=== PATIENT | female | born 1965 | race Caucasian/White ===

== ENCOUNTER → 2016-12-24 | Outpatient (CLI) | payer OTHER ==
[~2016-12-24] MED LIST: BUPR150T7 PO; CITA20TA4 PO; CLON0.5T3 PO
== END | disposition home or self-care (01) ==
LOC: C.LAB 04:19
DX: Z02.83 Encounter for blood-alcohol and blood-drug test (principal)

== ENCOUNTER 2017-05-26 15:39 | Emergency (ER) | payer OTHER ==
[~2017-05-26] VITALS: Ht 162.6 cm; Wt 78.0 kg
[~2017-05-26 15:39] MED LIST changes: +BIOT1CAP8 PO; +CHOL1000 PO; +IBUP-1450 PO; +MELO7.5T5 PO; +MULT-506 PO; +VITACAP26 PO
[2017-05-26 15:46] VITALS: TEMP 36.8; Ht 162.6 cm; Wt 78.0 kg
[2017-05-26] MEDS ORDERED: SODIUM CHLORIDE 0.9% 500ML 500 ML IV STA (18:29)
[2017-05-26] MEDS ORDERED: KETOROLAC TROMETHAMINE 30 MG/ML VIAL IV STA (18:29)
[2017-05-26] MEDS ORDERED: HYDROmorphone INJ 1 MG/ML SYR IV PRN (18:30)
[2017-05-26] MEDS ORDERED: ONDANSETRON INJ 2 MG/ML 2 ML VIAL IV PRN (18:30)
--- NOTE | 2017-05-26 18:34 | EMERGENCY ROOM VISIT NOTE ---
History First contact with patient: 18:12 Chief Complaint: REFERRED BY DOCTOR Stated Complaint: KIDNEY STONE;DOC REFERRED History of Present Illness The patient is a 52 year old female who presents to the Emergency Room with complaints of right flank pain radiating into her right abdomen that has gotten progressively worse over the last 3 weeks. The patient saw her primary care physician. An ultrasound and an x-ray were performed. She was told that she had a 4 mm kidney stone. The patient became concerned last night because she started seeing blood in her urine. She also reports hot and cold spells. The patient does not take her temperature at home. She denies any dysuria. She has had nausea without vomiting. Review of Systems 10 system review performed and negative unless noted in HPI or below Past Medical/Surgical History Medical Problems: (1) Acc Poison-Plants Nec (2) Oth Malaise&Fatigue (3) Tubal Ligation Status Social History Smoking Status: Current Every Day Smoker Alcohol Use: occasionally Drug Use: other Marital Status: single Housing Status: lives with family Occupation Status: employed Current/Historical Medications Scheduled Aripiprazole (Abilify), 1 TAB PO DAILY Biotin (Biotin), 1 CAP PO DAILY Bupropion (Wellbutrin Sr), 200 MG PO DAILY Calcium Carbonate-Vitamin D (Calcium), 1 TAB PO DAILY Cholecalciferol (Vitamin D3), 1 TAB PO DAILY Citalopram Hydrobromide (Citalopram Hydrobromide), 5 MG PO DAILY Multivitamin (Multivitamin), 1 TAB PO Q2D Ondasetron Odt (Zofran Odt), 4 MG SL Q6H Tamsulosin Hcl (Flomax), 0.4 MG PO DAILY Scheduled PRN Black Cohosh (Cimicifuga Racem (Black Cohosh), 1 TAB PO BID PRN for MENAPAUSE Ibuprofen (Advil), 400-600 MG PO Q6H PRN for Headache or Pain Tramadol (Ultram), 50 MG PO Q6 PRN for Pain Physical Exam Vital Signs Date Time Temp Pulse Resp B/P (MAP) Pulse Ox O2 Delivery O2 Flow Rate FiO2 05/26/17 20:53 68 16 167/86 98 Room Air 05/26/17 19:28 75 14 155/78 98 Room Air 05/26/17 15:46 36.8 98 18 145/93 96 Physical Exam VITALS: Vitals are noted on the nurse's note and reviewed by myself. Vital signs stable. GENERAL: 52-year-old female, in no acute distress, nondiaphoretic, well- developed well-nourished. SKIN: The skin was without rashes, erythema, edema, or bruising. HEAD: Normocephalic atraumatic. MOUTH: Mucous membranes moist. NECK: Supple without nuchal rigidity Cervical spine is nontender. No JVD. HEART: Regular rate and rhythm without murmurs gallops or rubs. LUNGS: Clear to auscultation bilaterally without wheezes, rales or rhonchi. No accessory muscle use. ABDOMEN: Positive bowel sounds x 4.Soft, nontender, without organomegaly. No guarding or rebound tenderness. MUSCULOSKELETAL: No muscle atrophy, erythema, or edema noted. Strength 5/5 throughout. NEURO: Patient was alert and oriented to person place and time. Normal sensation to touch. No focal neurological deficits. Medical Decision & Procedures ER Provider Diagnostic Interpretation: CT abdomen and pelvis IMPRESSION: 1. 5 mm obstructing calculus within the right ureter at the level of the right mid sacrum. 2. Moderate right hydroureteronephrosis. 3. Several nonobstructing lower pole left renal calcifications. The above report was generated using voice recognition software. It may contain grammatical, syntax or spelling errors. Electronically signed by: Stephan Israel M.D. 05/26/2017 7:40 PM Dictated Date/Time: 05/26/2017 7:36 PM Laboratory Results 05/26/17 18:41 Red Blood Count 4.71, Mean Corpuscular Volume 91.3, Mean Corpuscular Hemoglobin 30.8, Mean Corpuscular Hemoglobin Concent 33.7, Mean Platelet Volume 8.8, Neutrophils (%) (Auto) 47.5, Lymphocytes (%) (Auto) 40.8, Monocytes (%) (Auto) 8.7, Eosinophils (%) (Auto) 2.3, Basophils (%) (Auto) 0.5, Neutrophils # (Auto) 2.91, Lymphocytes # (Auto) 2.50, Monocytes # (Auto) 0.53, Eosinophils # (Auto) 0.14, Basophils # (Auto) 0.03 05/26/17 18:41 Test 2/9/18 18:41 White Blood Count 6.12 K/uL (4.8-10.8) Red Blood Count 4.71 M/uL (4.2-5.4) Hemoglobin 14.5 g/dL (12.0-16.0) Hematocrit 43.0 % (37-47) Mean Corpuscular Volume 91.3 fL (80-100) Mean Corpuscular Hemoglobin 30.8 pg (25-34) Mean Corpuscular Hemoglobin Concent 33.7 g/dl (32-36) Platelet Count 230 K/uL (130-400) Mean Platelet Volume 8.8 fL (7.4-10.4) Neutrophils (%) (Auto) 47.5 % Lymphocytes (%) (Auto) 40.8 % Monocytes (%) (Auto) 8.7 % Eosinophils (%) (Auto) 2.3 % Basophils (%) (Auto) 0.5 % Neutrophils # (Auto) 2.91 K/uL (1.4-6.5) Lymphocytes # (Auto) 2.50 K/uL (1.2-3.4) Monocytes # (Auto) 0.53 K/uL (0.11-0.59) Eosinophils # (Auto) 0.14 K/uL (0-0.5) Basophils # (Auto) 0.03 K/uL (0-0.2) RDW Standard Deviation 43.5 fL (36.4-46.3) RDW Coefficient of Variation 13.0 % (11.5-14.5) Immature Granulocyte % (Auto) 0.2 % Immature Granulocyte # (Auto) 0.01 K/uL (0.00-0.02) Urine Color DK YELLOW Urine Appearance CLOUDY (CLEAR) Urine pH 5.0 (4.5-7.5) Urine Specific Rebuck 1.027 (1.000-1.030) Urine Protein 1+ (NEG) Urine Glucose (UA) NEG (NEG) Urine Ketones TRACE (NEG) Urine Occult Blood 3+ (NEG) Urine Nitrite NEG (NEG) Urine Bilirubin NEG (NEG) Urine Urobilinogen NEG (NEG) Urine Leukocyte Esterase SMALL (NEG) Urine WBC (Auto) 1-5 /hpf (0-5) Urine RBC (Auto) >30 /hpf (0-4) Urine Hyaline Casts (Auto) 1-5 /lpf (0-5) Urine Epithelial Cells (Auto) >30 /lpf (0-5) Urine Bacteria (Auto) NEG (NEG) Anion Gap 6.0 mmol/L (3-11) Est Creatinine Clear Calc Drug Dose 65.1 ml/min Estimated GFR () 73.6 Estimated GFR (Non- 63.5 BUN/Creatinine Ratio 18.4 (10-20) Calcium Level 9.5 mg/dl (8.5-10.1) Total Bilirubin 0.2 mg/dl (0.2-1) Aspartate Amino Transf (AST/SGOT) 22 U/L (15-37) Alanine Aminotransferase (ALT/SGPT) 30 U/L (12-78) Alkaline Phosphatase 96 U/L (45-117) Total Protein 7.8 gm/dl (6.4-8.2) Albumin 4.0 gm/dl (3.4-5.0) Globulin 3.8 gm/dl (2.5-4.0) Albumin/Globulin Ratio 1.1 (0.9-2) Medications Administered Medications (Trade) Dose Ordered Sig/Keke Route Start Time Stop Time Status Last Admin Dose Admin Sodium Chloride 500 ml @ 999 mls/hr Q31M STAT IV 05/26/17 18:29 05/26/17 18:59 DC 05/26/17 18:44 999 MLS/HR Hydromorphone HCl (Dilaudid Inj) 1 mg Q2H PRN IV 05/26/17 18:30 05/26/17 21:23 DC 05/26/17 18:45 1 MG Ondansetron HCl (Zofran Inj) 4 mg Q2H PRN IV 05/26/17 18:30 05/26/17 21:23 DC 05/26/17 18:44 4 MG Ketorolac Tromethamine (Toradol Inj) 30 mg NOW STAT IV 05/26/17 18:29 05/26/17 18:32 DC 05/26/17 18:45 30 MG ED Course Patient was seen and examined Vital signs including blood pressure were reviewed medications list was verified with patient Labs were obtained, and a saline lock was established The patient was medicated with Toradol, Dilaudid and Zofran. She was hydrated with 500 mL normal saline Upon reevaluation, the patient was much more comfortable. We reviewed her workup. She voiced understanding and was controlled we'll being discharged home. I reviewed discharge instructions the patient. They voiced understanding and had no further questions. Medical Decision Differential diagnosis: Ureteral stone, pyelonephritis, UTI, musculoskeletal pain, ovarian cyst This patient is a 52-year-old female that presents to the emergency department with complaints of right flank pain and hematuria. On exam, she was moderately uncomfortable. She had some CVA tenderness. Her labs reveal no leukocytosis. Renal function is intact. She does have a 5 mm obstructing ureteral stone which is causing moderate hydronephrosis. Her urinalysis does not show any signs of a UTI. She is afebrile. I believe she is stable to be discharged home. The patient was given a refill on her Flomax. She has plenty of pain medication at home. She was given the number of [facility]. She will call first thing on Monday morning. She agrees to return to the emergency department immediately with any worsening symptoms; especially, fever or worsening pain This chart was completed in part utilizing [employer] Speech Voice Recognition software. Attempts were made to minimize the grammatical errors, random word insertions, pronoun errors and incomplete sentences. Any formal questions or concerns about the content, text or information contained within the body of this dictation should be directly addressed to the provider for clarification. Medication Reconcilliation Current Medication List: was personally reviewed by me Blood Pressure Screening Patient's blood pressure: Elevated blood pressure Blood pressure disposition: Did not require urgent referral Impression Primary Impression: Ureteral stone Departure Information Dispostion Home / Self-Care Condition GOOD Prescriptions Ondasetron Odt (ZOFRAN ODT) 4 Mg Tab 4 MG SL Q6H for Nausea, #20 TAB Prov: Lynn Godfrey PA-C 05/26/17 Tamsulosin Hcl (FLOMAX) 0.4 Mg Cap 0.4 MG PO DAILY for 14 Days, #14 CAP Prov: Lynn Godfrey PA-C 05/26/17 Referrals Mulu Matthews D.O. (PCP) Bridget Velasco MD Patient Instructions My [facility] Additional Instructions You were evaluated in the emergency department for right-sided abdominal pain. You have a 5 mm kidney stone on the right side. Please take ibuprofen 600 mg every 6 hours as needed for pain Oxycodone Immediate Release (OxyIR) 5mg: Take 1-2 pills every four hours for pain. Avoid alcohol, operating machinery or dangerous equipment, working on ladders or roofs, DRIVING, or situations where being under the influence may be dangerous. It is recommended to use an [id number] stool softener such as Colace, 100mg twice daily while taking this medication to avoid constipation. Please take Flomax 1 tab daily Please take Zofran 1 tab under the tongue every 6 hours as needed for nausea Please stay well hydrated. I would recommend drinking plenty of water and sports drinks. Please call the urologist office first thing Monday for a follow-up appointment. Do not hesitate to return to the emergency department with any new, worsening or concerning symptoms; especially, fever, worsening pain or uncontrolled vomiting Work Instructions Return To Work: 2 days
[2017-05-26 18:54] LABS: BASO % 0.5 %; BASO ABS # 0.03 K/uL (0-0.2); EOS % 2.3 %; EOS ABS # 0.14 K/uL (0-0.5); HEMOGLOBIN 14.5 g/dL (12.0-16.0); IG# 0.01 K/uL (0.00-0.02); LYMPH % 40.8 %; MEAN CELL VOLUME 91.3 fL (80-100); MEAN CORPUSCULAR HEMOGLOBIN 30.8 pg (25-34); MEAN CORPUSCULAR HGB CONC 33.7 g/dl (32-36); MEAN PLATELET VOLUME 8.8 fL (7.4-10.4); MONO % 8.7 %; MONO ABS # 0.53 K/uL (0.11-0.59); NEUT % 47.5 %; NEUT ABS # 2.91 K/uL (1.4-6.5); PLATELET COUNT 230 K/uL (130-400); RED CELL DISTRIBUTION WIDTH SD 43.5 fL (36.4-46.3); WHITE BLOOD COUNT 6.12 K/uL (4.8-10.8)
[2017-05-26 19:13] LABS: CALCIUM 9.5 mg/dl (8.5-10.1); CREATININE 1.01 mg/dl (0.60-1.20); POTASSIUM 3.7 mmol/L (3.5-5.1)
[2017-05-26 19:16] LABS: TOTAL PROTEIN 7.8 gm/dl (6.4-8.2)
--- NOTE | 2017-05-26 19:41 | DIAGNOSTIC IMAGING REPORT ---
ABD/PELVIS WITHOUT FOR STONE CT DOSE: 870.90 mGy.cm HISTORY: Flank pain R flank pain ? stone TECHNIQUE: Multiaxial CT images of the abdomen and pelvis were performed without the use of intravenous and oral contrast according to the standard department stone protocol. A dose lowering technique was utilized adhering to the principles of ALARA. COMPARISON STUDY: None. FINDINGS: Lung bases are clear. Liver spleen and pancreas are unremarkable. There is a nonobstructing 3 and 2 mm calcification lower pole left kidney. No evidence for left renal hydronephrosis. Right kidney shows moderate hydronephrosis. Moderate right hydroureter with a trace amount of periureteral infiltrative change. 5 mm obstructing calculus at the level of the mid sacrum. Distal aspects of the ureters are unremarkable. The bladder is midline. Uterus is anteflexed. Bowel pattern is nonobstructive. The appendix is normal. IMPRESSION: 1. 5 mm obstructing calculus within the right ureter at the level of the right mid sacrum. 2. Moderate right hydroureteronephrosis. 3. Several nonobstructing lower pole left renal calcifications. The above report was generated using voice recognition software. It may contain grammatical, syntax or spelling errors. Electronically signed by: Stephan Israel M.D. 05/26/2017 7:40 PM Dictated Date/Time: 05/26/2017 7:36 PM
[2017-05-26] MEDS ORDERED: CALC-51 PO (19:53)
[2017-05-26] MEDS ORDERED: CITA10TA4 PO (19:53)
[2017-05-26] MEDS ORDERED: TRAM-10 PO (19:53)
[2017-05-26] MEDS ORDERED: BLAC1TAB PO (19:53)
[2017-05-26] MEDS ORDERED: IBUP-1050 PO (19:53)
[2017-05-26] MEDS ORDERED: BUPR200T2 PO (19:53)
[2017-05-26] MEDS ORDERED: ABL10 PO (19:53)
[2017-05-26 20:53] VITALS: BP 167/86; PULSE 68; O2SAT 98
[2017-05-26] MEDS ORDERED: TAMS0.4C38 PO (20:57)
[2017-05-26] MEDS ORDERED: ONDA4TAB10 SL (20:57)
== END 2017-05-26 21:00 | disposition home or self-care (01) ==
LOC: C.EDB 15:41 → C.EDA 21:00
DX: N20.1 Calculus of ureter (principal); R03.0 Elevated blood-pressure reading, without diagnosis of hypertension; F17.200 Nicotine dependence, unspecified, uncomplicated

== ENCOUNTER → 2017-08-29 | Outpatient (CLI) | payer OTHER ==
[~2017-08-29] MED LIST changes: +ABL10 PO; +BLAC1TAB PO; -BUPR150T7 PO; +BUPR200T2 PO; +CALC-51 PO; +CITA10TA4 PO; -CITA20TA4 PO; -CLON0.5T3 PO; +IBUP-1050 PO; -IBUP-1450 PO; -MELO7.5T5 PO; +ONDA4TAB10 SL; +TRAM-10 PO; -VITACAP26 PO
--- NOTE | 2017-08-29 09:44 | DIAGNOSTIC IMAGING REPORT ---
RIGHT ANKLE 3 VIEWS HISTORY: Right ankle pain. COMPARISON: None. FINDINGS: There is no fracture or dislocation. Soft tissues are unremarkable. Cartilage spaces are maintained. Bone mineralization is intact. No erosions identified. IMPRESSION: No significant abnormality within the right ankle by conventional radiographic technique. Electronically signed by: Shamar Mirza M.D. 08/29/2017 9:42 AM Dictated Date/Time: 08/29/2017 9:41 AM
--- NOTE | 2017-08-29 09:45 | DIAGNOSTIC IMAGING REPORT ---
RIGHT HAND 3 VIEWS CLINICAL HISTORY: Right hand pain. FINDINGS: 3 views of the right hand are obtained. No prior studies are available for comparison at the time of dictation. The skeletal structures are well mineralized for age. No fracture is seen. There is mild to moderate degenerative narrowing at the radiocarpal articulation. There is osteoarthritic change involving the interphalangeal joints, distal greater than proximal. 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 Minimal osteoarthritic change is seen at the first carpometacarpal and metacarpophalangeal joints. Soft tissue swelling is noted in the fingers. IMPRESSION: 1. No acute bony abnormality is identified in the right hand. 2. 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 Electronically signed by: Carlos Holm M.D. 08/29/2017 9:44 AM Dictated Date/Time: 08/29/2017 9:42 AM
--- NOTE | 2017-08-29 09:53 | DIAGNOSTIC IMAGING REPORT ---
LEFT HAND 3 VIEWS CLINICAL HISTORY: Left hand pain. FINDINGS: 3 views of left hand are obtained. No prior studies are available for comparison at the time of dictation. The skeletal structures are well mineralized for age. No fracture is seen. There is mild degenerative narrowing at the radiocarpal articulation. Minimal osteoarthritic change is present at the first carpometacarpal joint. Osteoarthritic change is seen involving the interphalangeal joints, distal greater than proximal. Mild erosive osteoarthritic change is seen involving the 2nd through 4th distal interphalangeal joints, as well as at the second proximal interphalangeal joint. Mild soft tissue swelling is present in the fingers. IMPRESSION: 1. No acute bony abnormality is seen in the left hand. 2. Osteoarthritic and erosive osteoarthritic change as above. Electronically signed by: Carlos Holm M.D. 08/29/2017 9:52 AM Dictated Date/Time: 08/29/2017 9:51 AM
[2017-08-29 13:09] LABS: TRANSFERRIN 224 mg/dl (200-360)
== END | disposition home or self-care (01) ==
LOC: C.RAD1850 09:22
PROVIDERS: ATTEND Internal Medicine Rheumatology
DX: M19.042 Primary osteoarthritis, left hand (principal); M19.041 Primary osteoarthritis, right hand; M25.571 Pain in right ankle and joints of right foot

== ENCOUNTER → 2017-11-13 | Outpatient (CLI) | payer OTHER ==
[~2017-11-13] MED LIST changes: -ABL10 PO; -BIOT1CAP8 PO; +BIOT1CHW PO; -BLAC1TAB PO; +BUPR100T8 PO; -BUPR200T2 PO; -CALC-51 PO; -CHOL1000 PO; -IBUP-1050 PO; +LTD/40 PO; -MULT-506 PO; +OXYC-737 PO; +PROP10TA7 PO; -TRAM-10 PO
[2017-11-13 12:35] LABS: BASO % 0.5 %; BASO ABS # 0.04 K/uL (0-0.2); EOS % 0.5 %; EOS ABS # 0.04 K/uL (0-0.5); HEMATOCRIT 42.1 % (37-47); IG# 0.01 K/uL (0.00-0.02); LYMPH % 29.7 %; LYMPH ABS # 2.29 K/uL (1.2-3.4); MEAN CELL VOLUME 89.6 fL (80-100); MEAN CORPUSCULAR HEMOGLOBIN 29.8 pg (25-34); MEAN CORPUSCULAR HGB CONC 33.3 g/dl (32-36); MEAN PLATELET VOLUME 9.3 fL (7.4-10.4); MONO % 6.2 %; MONO ABS # 0.48 K/uL (0.11-0.59); NEUT ABS # 4.86 K/uL (1.4-6.5); PLATELET COUNT 358 K/uL (130-400); RED CELL DISTRIBUTION WIDTH CV 13.5 % (11.5-14.5); RED CELL DISTRIBUTION WIDTH SD 44.8 fL (36.4-46.3); WHITE BLOOD COUNT 7.72 K/uL (4.8-10.8)
[2017-11-13 12:51] LABS: ALBUMIN 3.7 gm/dl (3.4-5.0); ALKALINE PHOSPHATASE 104 U/L (45-117); ALT/SGPT 27 U/L (12-78); AST/SGOT 16 U/L (15-37); CREATININE 0.84 mg/dl (0.60-1.20); TOTAL PROTEIN 7.1 gm/dl (6.4-8.2)
== END | disposition home or self-care (01) ==
LOC: C.LAB1850 10:18
PROVIDERS: ATTEND Internal Medicine Rheumatology
DX: M79.641 Pain in right hand (principal); M79.642 Pain in left hand; Z79.899 Other long term (current) drug therapy

== ENCOUNTER 2024-12-23 14:43 | Inpatient (IN) ==
[2024-12-23 15:16] LABS: Appearance Urine Clear (Clear); Glucose Urine UA Negative (Negative)
[2024-12-23 16:34] LABS: Hematocrit (blood only) 34.1 % (37.0-47.0); Hemoglobin 11.1 g/dl (12.0-16.0); Immature Granulocytes # (auto) 0.05 K/uL (0.01-0.20); Immature Granulocytes % (auto) 0.8 %; Mean Corpuscular Hemoglobin 29.1 pg (25.0-34.0); Mean Corpuscular Volume 89.5 fL (80.0-100.0); Platelet Count 579 K/uL (130-400); RDW Standard Deviation 45.5 fL (36.4-46.3); Red Blood Count 3.81 M/uL (4.20-5.40); White Blood Count 6.60 K/ul (4.8-10.8)
[2024-12-23 16:58] LABS: Alanine Aminotransferase 31 U/L (7-52); Albumin Globulin Ratio 1.2 (0.9-2); Alkaline Phosphatase 235 U/L (34-104); Anion Gap 8 (3-11); Bilirubin,Total 0.5 mg/dl (0.2-1.0); Blood Urea Nitrogen 11 mg/dl (6-23); Calcium 9.4 mg/dl (8.6-10.3); Carbon Dioxide 28 mmol/L (21-32); Chloride 101 mmol/L (98-107); Globulin 3.4 gm/dl (2.5-4.0); Glucose 94 mg/dl (70-99(Fasting)); Potassium 4.5 mmol/L (3.5-5.1); Sodium 137 mmol/L (136-145); Total Protein 7.5 gm/dl (6.0-8.3)
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
[2024-12-23] MEDS: OPTIRAY 320 125ml IV ONE (18:57)
--- NOTE | 2024-12-23 19:03 | XRay Report ---
Clinical History: Pain. 4 views of the right elbow are submitted for review. Findings: No fracture or dislocation is seen. No significant arthritic changes are noted. No other osseous abnormality is identified. There are no radiopaque foreign bodies. Impression: Unremarkable radiographs of the right elbow Electronically signed by Mika Dickson 12-23-2024 7:02 PM
--- NOTE | 2024-12-23 20:34 | CT Scan Report ---
Exam(s): CTA CHEST EXAM: CT Angiography Chest With Intravenous Contrast CLINICAL HISTORY: Reason for exam: pain with deep breath, recent splenic injury. TECHNIQUE: Axial computed tomographic angiography images of the chest with intravenous contrast. CTDI is 52.92 mGy and DLP is 2099.53 mGy-cm. Automated exposure control was utilized for the study. A dose lowering technique was utilized adhering to the principles of ALARA. IV contrast is given. MIP reconstructed images were created and reviewed. Motion artifact and metal artifact in the left upper quadrant. COMPARISON: None. FINDINGS: Aorta: No dissection or aneurysm. Pulmonary arteries: No pulmonary congestion. Lungs: Moderate left lower lobe atelectasis or infiltrate, nonspecific, could reflect aspiration pneumonia. Does not have the typical appearance contusion, though this entity is not entirely excluded. . Pleural space: Moderate left pleural effusion/hemothorax. No pneumothorax. Heart: No cardiomegaly. No significant pericardial effusion. Bones/joints: No acute sternal, vertebral, scapular or clavicle fracture. Soft tissues: Splenic laceration, see separately dictated CT abdomen pelvis. Lymph nodes: No enlarged lymph nodes. IMPRESSION: 1. Moderate left hemothorax/pleural effusion and left lower lobe probable infiltrate/aspiration pneumonia. 2. Left 10th rib fracture. 3. Splenic laceration, see separately dictated CT abdomen pelvis. 4. No pneumothorax, aortic injury, or other fracture. Electronically signed by: Ruma Schroeder M.D. 12/23/24 20:33 PM
--- NOTE | 2024-12-23 20:35 | CT Scan Report ---
Exam(s): CT T SPINE EXAM: CT Thoracic Spine Without Intravenous Contrast CLINICAL HISTORY: Reason for exam: pain with deep breath, recent splenic injury. TECHNIQUE: Axial computed tomography images of the thoracic spine without intravenous contrast. CTDI is 52.92 mGy and DLP is 2099.53 mGy-cm. Automated exposure control was utilized for the study. A dose lowering technique was utilized adhering to the principles of ALARA. COMPARISON: None. FINDINGS: Vertebrae: No acute fracture of the thoracic vertebral body. Discs/spinal canal/neural foramina: Soft tissues: Moderate left pleural effusion and infiltrate, see separately dictated CT chest. IMPRESSION: 1. No fracture or acute bony abnormality of the thoracic spine. Electronically signed by: Ruma Schroeder M.D. 12/23/24 20:34 PM
--- NOTE | 2024-12-23 20:43 | CT Scan Report ---
Exam(s): CT ABDOMEN + PELVIS With Contrast IV Amt: 118 cc opti 320 EXAM: CT Abdomen and Pelvis With Intravenous Contrast CLINICAL HISTORY: Reason for exam: abd pain, recent splenic injury. TECHNIQUE: Axial computed tomography images of the abdomen and pelvis with intravenous contrast. CTDI is 52.92 mGy and DLP is 2099.53 mGy-cm. Automated exposure control was utilized for the study. A dose lowering technique was utilized adhering to the principles of ALARA. Mild motion artifact. CONTRAST: Patient received 118 cc opti 320 of IV contrast COMPARISON: CT abdomen pelvis 10/31/2017. FINDINGS: Liver: No injury. Fatty infiltration. Gallbladder and bile ducts: Normal gallbladder. No ductal dilation. Pancreas: No ductal dilation. Spleen: Grade 3 splenic laceration, intra splenic hematoma 3.2 cm, and moderately large subcapsular hematoma. No contrast extravasation. Minimal intrapelvic hemoperitoneum. Most likely, this reflects known injury. Coiling material along the splenic artery. Correlate clinically. Adrenals: Unremarkable. Kidneys and ureters: No injury. Stomach and bowel: No obstruction. Intraperitoneal space: No free air . Minimal intrapelvic hemoperitoneum. Bones/joints: Right sacral fracture. These can be associated with additional pelvic fractures or diastasis, though no additional lesions are appreciated. No acute vertebral fracture. Soft tissues: 9.8 x 3.2 x 6 cm fluid collection superficial to the left gluteal muscle, nonspecific, presumed resolving hematoma.. Vasculature: No abdominal aortic aneurysm. Lymph nodes: No enlarged lymph nodes. Bladder: No injury. Collapsed, poorly evaluated. Reproductive: 4 x 4 x 3 cm left ovarian cyst. IMPRESSION: 1. Grade 3 splenic laceration, with splenic artery coiling material, and moderate subcapsular hematoma, probably reflects known injury. 2. Trace pelvic hemoperitoneum. 3. 4 x 4 x 3 cm left ovarian cyst. 4. Fracture of the right sacrum. Electronically signed by: Ruma Schroeder M.D. 12/23/24 20:41 PM
--- NOTE | 2024-12-23 20:44 | CT Scan Report ---
Exam(s): CT L SPINE With Contrast IV Amt: 118 cc opti 320 EXAM: CT Lumbar Spine With Intravenous Contrast CLINICAL HISTORY: Reason for exam: urinary incontinence, recent splenic injury. TECHNIQUE: Axial computed tomography images of the lumbar spine with intravenous contrast. CTDI is 52.92 mGy and DLP is 2099.53 mGy-cm. Automated exposure control was utilized for the study. A dose lowering technique was utilized adhering to the principles of ALARA. Metal artifact from coiling material splenic artery region. CONTRAST: Patient received 118 cc opti 320 of IV contrast COMPARISON: None. FINDINGS: Vertebrae: Fracture of the right sacrum, these can be associated with additional pelvic fractures/diastasis. Correlate clinically, and with MRI if necessary. No acute lumbar spine fracture. Discs/spinal canal/neural foramina: Disc heights are well-preserved, there is endplate osteophyte formation indicating a component of diffuse degenerative disc disease. There is severe facet hypertrophy. Soft tissues: Abnormal spleen/coiling material splenic artery, partially imaged left superficial gluteal fluid collection/hematoma, and left ovarian cyst, see separately dictated CT abdomen pelvis. IMPRESSION: 1. Right sacral fracture. 2. No fracture of the lumbar spine. Electronically signed by: Ruma Schroeder M.D. 12/23/24 20:43 PM
[2024-12-23] MEDS: AMPICILLIN/SULBACTAM SOD 3,000 MG/100 ML BAG IV STA (21:36)
[2024-12-23] MEDS ORDERED: PROMETHAZINE 6.25 MG/50.25 ML BAG IV PRN (22:29)
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
[2024-12-23] MEDS: METOPROLOL TARTRATE 1 MG/ML VIAL IV STA (22:45)
[2024-12-23] MEDS: HYDROmorphone INJ 0.5 MG/0.5 ML SYR IV STA (22:50)
[2024-12-23 23:31] LABS: Hematocrit (blood only) 32.3 % (37.0-47.0); Hemoglobin 11.1 g/dl (12.0-16.0)
[2024-12-24] MEDS: ACETAMINOPHEN 1,000 MG/100 ML VIAL IV STA (01:04)
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
[2024-12-24 04:39] LABS: Hematocrit (blood only) 30.8 % (37.0-47.0); Hemoglobin 10.5 g/dl (12.0-16.0); Immature Granulocytes # (auto) 0.07 K/uL (0.01-0.20); Immature Granulocytes % (auto) 1.1 %; Mean Corpuscular Hemoglobin 30.3 pg (25.0-34.0); Mean Corpuscular Volume 88.8 fL (80.0-100.0); Platelet Count 534 K/uL (130-400); RDW Standard Deviation 45.0 fL (36.4-46.3); Red Blood Count 3.47 M/uL (4.20-5.40); White Blood Count 6.37 K/ul (4.8-10.8)
[2024-12-24 04:54] LABS: Alanine Aminotransferase 24.0 U/L (7-52); Albumin Globulin Ratio 1.3 (0.9-2); Alkaline Phosphatase 206.0 U/L (34-104); Anion Gap 9.0 (3-11); Bilirubin,Total 0.4 mg/dl (0.2-1.0); Blood Urea Nitrogen 10.0 mg/dl (6-23); Calcium 9.2 mg/dl (8.6-10.3); Carbon Dioxide 26.0 mmol/L (21-32); Chloride 103.0 mmol/L (98-107); Creatinine Clr Calc Pharmacy 80.7 ml/min; Globulin 2.9 gm/dl (2.5-4.0); Glucose 97.0 mg/dl (70-99(Fasting)); Potassium 4.1 mmol/L (3.5-5.1); Sodium 138.0 mmol/L (136-145); Total Protein 6.6 gm/dl (6.0-8.3)
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
[2024-12-24 07:13] LABS: Hemoglobin A1C 5.7 % (4.5-5.6)
--- NOTE | 2024-12-24 07:38 | Magnetic Resonance Report ---
EXAM: MR lumbar spine wo con CLINICAL HISTORY: worsening traumatic back pain TECHNIQUE: Different pulse sequences were performed in different planes for the lumbar spine without contrast. Images were sent through PACs for diagnostic interpretation. COMPARISON: No previous studies are available for comparison. FINDINGS: Vertebral Alignment: Loss of lumbar lordosis - suggestive of paraspinal muscle spasm. No evidence of scoliosis is observed. Vertebral Bodies and Intervertebral Discs: Linear vertical fracture with adjacent marrow edema is noted in L4 spinous process. Mild edema of adjacent paraspinal soft tissue as well. Ill-defined marrow edema seen in body of sacrum, more on right side- possibility of post-traumatic edema/trabecular fracture- dedicated pelvis study is recommended. Trabecular injury with adjacent marrow edema is noted in S2 and S3 vertebral body. Degenerative changes involving lumbar spine in the form of multilevel marginal osteophytes Normal vertebral body height. No lytic or sclerotic lesions. Disc desiccation of L2-L3 to L5-S1 intervertebral disc. [id number] analysis: T12-L1: There is no focal disc pathology, spinal canal stenosis, or neural foraminal stenosis. L1-L2: There is no focal disc pathology, spinal canal stenosis, or neural foraminal stenosis. L2-L3: There is no focal disc pathology, spinal canal stenosis, or neural foraminal stenosis. L3-L4: There is no focal disc pathology, spinal canal stenosis, or neural foraminal stenosis. L4-L5: Mild diffuse disc bulge, with left sided propensity causes effacement of left neural foramina which abutting left exiting nerve root. L5-S1: There is no focal disc pathology, spinal canal stenosis, or neural foraminal stenosis. Spinal Cord and Nerve Roots: Conus medullaris terminates at the L1 level without abnormality. Nerve roots appear unremarkable bilaterally. The lower thoracic spinal cord, conus medullaris, and cauda equina nerve roots are unremarkable. Soft Tissues: Rest of the paraspinal soft tissues appear normal without evidence of abnormal signal intensity or mass lesions. Approximately 100 x 37 mm size T2 hyperintense collection is noted involving intramuscular plane of left gluteus muscle IMPRESSION: 1. Linear vertical fracture with adjacent marrow edema is noted in L4 spinous process. Mild edema of adjacent paraspinal soft tissue matrix as well. 2. Trabecular injury with adjacent marrow edema is noted in S2 and S3 vertebral body. 3. Ill-defined marrow edema in body of sacrum, more on right side- possibility of post-traumatic edema/trabecular fracture- dedicated pelvis study is recommended. 4. L4-L5: Mild diffuse disc bulge, with left sided propensity causes effacement of left neural foramina which abutting left exiting nerve root. 5. Approximately 100 x 37 mm size T2 hyperintense collection is noted involving intramuscular plane of left gluteus muscle Electronically signed by Levon Santos 12-24-2024 07:37 AM
[2024-12-24] MEDS: HYDROmorphone INJ 0.5 MG/0.5 ML SYR IV PRN (07:46)
[2024-12-24] MEDS: DOCUSATE SODIUM 100 MG CAP PO SCH (08:49)
[2024-12-24] MEDS: ESCITALOPRAM OXALATE 20 MG TAB PO SCH (08:49)
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
[2024-12-24] MEDS: ACETAMINOPHEN 325 MG TAB PO PRN (10:33)
--- NOTE | 2024-12-24 11:46 | Hospitalist Progress Note ---
Date of Service December 24, 2024 Assessment & Plan (1) Asymptomatic hypertensive urgency: Plan: Assessment and plan below following discussion of case with ED provider and reviewing patient history/pertinent normal/abnormal diagnostic test results. Hypertensive urgency secondary to pain from recent injury Traumatic left hemothorax/rib fracture Splenic laceration status post surgery, abdominal pain not as worse as per patient Traumatic sacral fracture with radiculopathy symptoms - on room air hemoglobin 11.1, today 10.5 pulmonology service consulted - orthopedic service consulted Left-sided headache, neck pain - CT head unremarkable CT cervical spine ordered - possible concussion? Neurology consulted Anemia secondary to recent trauma/surgery anxiety/mood disorder, at baseline Prediabetes-A1c 5.7, outpatient follow-up ongoing tobacco abuse DVT prophylaxis. SCDs re: hemothorax Full code plan of care discussed with patient in detail and at length all questions answered she is understanding, agreeable, comfortable with the plan of care Admission and Anticipated Discharge Date Admission Date: December 24, 2024 Subjective Seen resting in bed, comfortable, no distress Still reports left lateral chest area and left upper quadrant areapain No shortness of breath, cough no hematuria or melena/hematochezia Reports left-sided headache/neck pain Worse with movement of the head No other new symptoms Review of Systems Review of Systems: all noted and negative except for above Physical Exam Physical Exam: General- oriented x 3, not in distress, speaks in sentences with no effort or accessory muscle use Eyes- anicteric Neck- no JVD no edema/hematoma/warmth/tenderness left-sided neck Pain with turning the head to the right side Lungs- clear breath sounds bilaterally, no rales/wheezes Heart- normal rate, regular rhythm; no murmurs Abdomen- normal bowel sounds, nondistended, soft, nontender Extremities- no pretibial edema, no calf tenderness Neuro- alert, oriented x 3; no gross focal neurologic deficits Skin- warm & dry Results & Data Results & Data Vital Signs (Past 12 Hours) Vital Signs Temp Pulse Pulse Resp BP BP Pulse Ox 12/24/24 07:30 74 17 133/71 92 12/24/24 06:00 103/64 12/24/24 06:00 85 16 96 12/24/24 04:00 36.5 C 74 16 113/62 93 12/24/24 01:35 79 12/24/24 01:22 79 18 149/82 H 95 12/24/24 01:20 149/82 H 12/24/24 01:06 88 19 95 12/24/24 00:54 131/88 12/24/24 00:00 87 22 134/86 94 O2 Del Method 12/24/24 07:30 Room Air 12/24/24 06:00 12/24/24 06:00 Room Air 12/24/24 04:00 Room Air 12/24/24 01:35 12/24/24 01:22 Room Air 12/24/24 01:20 12/24/24 01:06 Room Air 12/24/24 00:54 12/24/24 00:00 Room Air all noted and reviewed including below
--- NOTE | 2024-12-24 11:56 | Pulmonary Consultation ---
Date of Consultation December 24, 2024 Assessment & Plan (1) Pleural effusion, left: The pleural effusion appears to be a sympathetic response to a process in the spleen. There does not appear to be clear evidence of hemothorax. I am doubtful that the downtrending hemoglobin is related to the pleural effusion at this time. I am also doubtful that thoracentesis or CT guided chest tube will provide significant relief of symptoms by drainage as there appears to be a small volume of pleural fluid. I discussed this with the radiology PA, Sudhakar Adams who concurs who also discussed this with his attending, Dr. Christopher Calloway. Radiology did mention that perhaps there is a rebleed of the embolized portion of the splenic artery or a postembolization bleed. I have ordered a PTT and INR. (2) Closed fracture of rib of left side: Continue pain control per primary team. Incentive spirometer and flutter valve ordered. (3) Spleen laceration: This was embolized at an outside facility about 11 days ago. (4) Anemia: Multiple sites of potential bleeding. Hyperintense fluid collection noted along the intermuscular plane of the left gluteus muscle on MRI. Grade 3 splenic laceration splenic artery coiling material and moderate subscapular hematoma seen on CT of the abdomen pelvis 12/23/2024 per radiology. Fracture of the right sacrum seen as well. Repeat CBC now. Check INR and PTT. Plan I personally spent 80 minutes on the date of service in activities related to this patient's encounter, including 45 minutes of counseling with patient regarding treatment plan and 35 minutes of clinical review of lab results and documentation. I did quitline counselor the patient regarding their diagnosis and treatment plan and they expressed understanding. This note was dictated using voice recognition software and may include grammatical errors, extra words, word substitutions and other inaccuracies due to errors in the voice recognition software and differences in speech patterns. History of Present Illness Reason for Consultation: Concern for left-sided hemothorax Attending Physician: Lauro Morris MD History of Present Illness 59-year-old female with approximately 4-pack-year smoking history who presented to the hospital per the recommendation of her primary care physician due to urinary incontinence after a fall from a horse. Patient about 11 days ago sustained a fall from a horse while in [place]. She was evaluated there and found to have a splenic laceration which underwent IR embolization. She was ultimately discharged and has been having urinary incontinence. She also notes difficulty with deep breathing as she feels that she cannot get a deep breath and has pain upon deep breathing. She had a chest CT completed yesterday which revealed moderate left hemothorax and possible aspiration pneumonia. A left 10th rib fracture was noted. Patient's hemoglobin is notably decreased from her baseline of roughly 14-10.5. She is currently not requiring any supplemental oxygen and saturating well on room air in the low 90s. She has no evidence of labored breathing. Allergies Allergy/AdvReac Type Severity Reaction Status Date / Time codeine AdvReac Severe NAUSEA & Verified 12/23/24 19:12 SWEATS morphine AdvReac Severe NAUSEA & Verified 12/23/24 19:12 SWEATS prednisone AdvReac Intermediate aggression Unverified 12/23/24 19:12 Home Medications Medication Instructions Recorded Confirmed Type peg 3350-sod sulf,[id number] See Rx Instructions PO .COMPLEX #2 12/19/24 Rx 178.7-7.3-0.5-1.12-0.9 gram oral mL soln (Suflave) CBD OIL 0 drp PO QAM 12/23/24 12/23/24 History acetaminophen 500 mg tablet 1,000 mg PO BID PRN Pain 12/23/24 12/23/24 History cefdinir 300 mg capsule 300 mg PO BID 12/23/24 12/23/24 History docusate sodium 100 mg capsule 100 mg PO BID 12/23/24 12/23/24 History escitalopram oxalate 20 mg tablet 20 mg PO QAM 12/23/24 12/23/24 History hydroxyzine HCl 25 mg tablet 25 mg PO QPM PRN Anxiety 12/23/24 12/23/24 History methocarbamol 500 mg tablet 500 mg PO BID 12/23/24 12/23/24 History oxcarbazepine 300 mg tablet 300 mg PO BID 12/23/24 12/23/24 History oxycodone 5 mg tablet 5 mg PO Q6H PRN Severe Pain (Scale 12/23/24 12/23/24 History Score 7-10) risperidone 1 mg tablet 0.5 mg PO BID 12/23/24 12/23/24 History Patient History Family History (Updated 09/03/24 @ 16:02 by Logan Wood MA) Mother Heart disease Hypertension Father Heart disease Diabetes Cancer Grandmother (Maternal) Heart disease Hypertension Grandfather (Paternal) Diabetes Denies family history of Crohn's disease Ulcerative colitis Social History (Updated 09/03/24 @ 16:03 by Logan Wood MA) Smoking Status: Never smoker Do You Dip or Chew Tobacco: No; Hx Alcohol Use: Yes Alcohol type: hard liquor Hx Substance Use: Yes Preferred Language: Mexican Communication Ability: Effective Leach Runner Required: No Feels Safe at Home: Yes Safety Concerns: Feels Safe At This Time Gender Identity: Female Review of Systems Review of Systems: All systems reviewed & are unremarkable except as noted in HPI & below Physical Exam Physical Exam: Constitutional: Patient appears to be of their stated age. Patient is in no apparent distress. Patient is well-developed. Eyes: Pupils are equal round and reactive to light. Conjunctivae are normal. Anicteric sclera. Ears nose, mouth and throat: Mallampati class 2. Normal posterior oropharynx. Uvula is midline. Neck: Trachea is midline. Visual inspection is normal. Respiratory: Diminished on the left with mild crackles. Cardiovascular: Regular rate and rhythm. No murmurs. No edema. Gastrointestinal: Normal bowel sounds, soft, nontender and nondistended. No hepatosplenomegaly noted. Musculoskeletal: No cyanosis. Patient is able to move all extremities. Strength is 5 out of 5 in the upper and lower extremities. Skin: No rashes, warm dry and intact. Neurologic: No obvious focal neurological deficits seen. Psychiatric: Alert and oriented x3 with a euthymic affect. Results & Data Results & Data Vital Signs (Past 12 Hours) Vital Signs Temp Pulse Pulse Resp BP BP Pulse Ox 12/24/24 07:30 74 17 133/71 92 12/24/24 06:00 103/64 12/24/24 06:00 85 16 96 12/24/24 04:00 36.5 C 74 16 113/62 93 12/24/24 01:35 79 12/24/24 01:22 79 18 149/82 H 95 12/24/24 01:20 149/82 H 12/24/24 01:06 88 19 95 12/24/24 00:54 131/88 12/24/24 00:00 87 22 134/86 94 O2 Del Method 12/24/24 07:30 Room Air 12/24/24 06:00 12/24/24 06:00 Room Air 12/24/24 04:00 Room Air 12/24/24 01:35 12/24/24 01:22 Room Air 12/24/24 01:20 12/24/24 01:06 Room Air 12/24/24 00:54 12/24/24 00:00 Room Air PG Care Time/CCT Total # of Minutes Spent Total Time Spent with Patient: Total time spent is greater than 50% in coordination of care (as documented) at patient's floor/unit and/or counseling patient: Coding Level of Care Code 25191 INT INP/OBS CARE 3/75MIN Diagnoses Pleural effusion, left J90 Closed fracture of rib of left side S22.32XA Spleen laceration S36.039A Anemia D64.9
--- NOTE | 2024-12-24 12:30 | XRay Report ---
XR chest 1V not portable CLINICAL HISTORY: follow up pleural effusion COMPARISON STUDY: 05/27/2015 x-ray [address] CT scan yesterday FINDINGS: Heart size and pulmonary vasculature are normal. Small left pleural effusion and associated left lung base consolidation are stable. Otherwise the lungs remain aerated. No pneumothorax. Lower left rib fracture remains nondisplaced. IMPRESSION: Stable exam. ACT 112: Negative or not required by law. Electronically signed by: Christopher Calloway M.D. 12/24/2024 12:29 PM
[2024-12-24 12:51] LABS: Hematocrit (blood only) 32.8 % (37.0-47.0); Hemoglobin 11.1 g/dl (12.0-16.0); Mean Corpuscular Hemoglobin 30.4 pg (25.0-34.0); Mean Corpuscular Volume 89.9 fL (80.0-100.0); Platelet Count 572 K/uL (130-400); RDW Standard Deviation 45.0 fL (36.4-46.3); Red Blood Count 3.65 M/uL (4.20-5.40); White Blood Count 5.73 K/ul (4.8-10.8)
[2024-12-24 13:17] LABS: INR 0.9 (0.9-1.1); Partial Thromboplastin Time 27 Seconds (21-31); Prothrombin Time 10.3 Seconds (9.0-12.0)
--- NOTE | 2024-12-24 13:31 | Neurology Consultation ---
Date of Consultation December 24, 2024 Assessment & Plan (1) Post-concussion headache: Plan Delphine Matos is a 59-year-old female with a past medical history of depression, anxiety, PTSD, and ADHD who presents to [facility] Emergency Department with headache after a fall from a horse Approximately 2 weeks ago which resulted in concussive injury, rib fractures, and splenic laceration. The patient shows me a video of the fall which did result in some head trauma. She reports constant 5/10 headache which at times will increase to 7/10. She describes the pain as thumping. She denies any vision deficits, speech deficits, weakness, numbness, paresthesias, or mood symptoms worse than her baseline. In the Emergency Department, she tells me she has gotten Tylenol and oxycodone which have have somewhat improved her headaches. She takes escitalopram, risperidone, and oxycodone home medications. She uses CBD oils to help with pain. CT head unremarkable. # Post concussive injury -limit opioids as able -recommend migraine cocktail with: diphenhydramine 12.5 mg IV every 6 hours, ketorolac 15 mg IV every 6 hours, IV fluids rate 100 mL/hour, magnesium sulfate 2 mg IV daily, pantoprazole 40 mg daily, prednisone 20 mg daily, Compazine 10 mg IV every 6 hours, valproic acid 500 mg IV daily -start headache preventative medication with metoprolol 50 mg daily for 1 week then increase to 100 mg daily -nonpharmacologic options include cognitive behavioral therapy, physical or manual therapies, exercise, avoidance of headache triggers, progressive muscle relaxation, sleep hygiene education, dietary and environmental modifications -please call if patient does not experience symptom relief and needs additional headache medication -patient will need outpatient General Neurology follow up in Headache Clinic -I advised patient to limit [id number] analgesic medication to less than 8 days monthly to avoid rebound headaches I discussed with the above recommendations with Dr. Morris. Thank you for this consult. Please call with questions. Telehealth Consultation Telehealth Information Telehealth Information: I performed this visit using a real-time telehealth connection between my location and the patients location ([facility]). After connecting through interactive tele-video, patient was identified by name and date of and/or wristband check.Patient (or authorized healthcare cordage sales representative) was informed that this was a telemedicine visit and it was being conducted confidentially over secure lines. My office door was closed and no one else was present in the room with me.Patient (or authorized healthcare cordage sales representative) provided consent to proceed with the visit, expressed an understanding of privacy and security of the telemedicine visit, and gave permission to have a hospital cordage sales representative in the room in order to assist with the visit and to conduct portions of the visit, as needed. I informed the patient (or authorized healthcare cordage sales representative) that I reviewed their record and presented the opportunity for them to ask any questions regarding the visit today. The patient agreed to participate. History of Present Illness Reason for Consultation: headache Attending Physician: Lauro Morris MD History of Present Illness Delphine Matos is a 59-year-old female with a past medical history of depression, anxiety, PTSD, and ADHD who presents to [facility] Emergency Department with headache after a fall from a horse Approximately 2 weeks ago which resulted in concussive injury, rib fractures, and splenic laceration. The patient shows me a video of the fall which did result in some head trauma. She reports constant 5/10 headache which at times will increase to 7/10. She describes the pain as thumping. She denies any vision deficits, speech deficits, weakness, numbness, paresthesias, or mood symptoms worse than her baseline. In the Emergency Department, she tells me she has gotten Tylenol and oxycodone which have have somewhat improved her headaches. She takes escitalopram, risperidone, and oxycodone home medications. She uses CBD oils to help with pain. CT head unremarkable. Allergies Allergy/AdvReac Type Severity Reaction Status Date / Time codeine AdvReac Severe NAUSEA & Verified 12/23/24 19:12 SWEATS morphine AdvReac Severe NAUSEA & Verified 12/23/24 19:12 SWEATS prednisone AdvReac Intermediate aggression Unverified 12/23/24 19:12 Home Medications Medication Instructions Recorded Confirmed Type peg 3350-sod sulf,[id number]-bum-dsw See Rx Instructions PO .COMPLEX #2 12/19/24 Rx 178.7-7.3-0.5-1.12-0.9 gram oral mL soln (Suflave) CBD OIL 0 drp PO QAM 12/23/24 12/23/24 History acetaminophen 500 mg tablet 1,000 mg PO BID PRN Pain 12/23/24 12/23/24 History cefdinir 300 mg capsule 300 mg PO BID 12/23/24 12/23/24 History docusate sodium 100 mg capsule 100 mg PO BID 12/23/24 12/23/24 History escitalopram oxalate 20 mg tablet 20 mg PO QAM 12/23/24 12/23/24 History hydroxyzine HCl 25 mg tablet 25 mg PO QPM PRN Anxiety 12/23/24 12/23/24 History methocarbamol 500 mg tablet 500 mg PO BID 12/23/24 12/23/24 History oxcarbazepine 300 mg tablet 300 mg PO BID 12/23/24 12/23/24 History oxycodone 5 mg tablet 5 mg PO Q6H PRN Severe Pain (Scale 12/23/24 12/23/24 History Score 7-10) risperidone 1 mg tablet 0.5 mg PO BID 12/23/24 12/23/24 History Patient History Family History (Updated 09/03/24 @ 16:02 by Logan Wood MA) Mother Heart disease Hypertension Father Heart disease Diabetes Cancer Grandmother (Maternal) Heart disease Hypertension Grandfather (Paternal) Diabetes Denies family history of Crohn's disease Ulcerative colitis Social History (Updated 09/03/24 @ 16:03 by Logan Wood MA) Smoking Status: Never smoker Do You Dip or Chew Tobacco: No; Hx Alcohol Use: Yes Alcohol type: hard liquor Hx Substance Use: Yes Preferred Language: Hungarian Communication Ability: Effective Airport Ramp Attendant Required: No Feels Safe at Home: Yes Gender Identity: Female Review of Systems ROS reviewed and negative except as above. Physical Exam Physical Exam: General Appearance: Alert HEENT: anicteric sclera, no scleral injection Lungs: respirations appear comfortable, no obvious increased work of breathing Extremities: No cyanosis or fingernail clubbing Skin: No rashes in exposed skin areas Objective Limited due to Televideo encounter Physical Exam: General Appearance: Alert Neurological Examination: Mental status: Alert and oriented. No dysarthria. Cranial Nerves: Extraocular movements intact with no nystagmus. Midline gaze. Face symmetric. Sensory: Normal sensory exam to light touch. Motor:Absent pronator drift. Strength: Antigravity in all extremities. Cerebellar: Rapid alternating movements are intact. Results & Data Vital Signs (Past 12 Hours) Vital Signs Temp Pulse Pulse Resp BP BP Pulse Ox 12/24/24 13:00 91 H 17 122/69 91 12/24/24 11:00 87 17 128/74 94 12/24/24 07:30 74 17 133/71 92 12/24/24 06:00 103/64 12/24/24 06:00 85 16 96 12/24/24 04:00 36.5 C 74 16 113/62 93 12/24/24 01:35 79 12/24/24 01:22 79 18 149/82 H 95 O2 Del Method 12/24/24 13:00 Room Air 12/24/24 11:00 Room Air 12/24/24 07:30 Room Air 12/24/24 06:00 12/24/24 06:00 Room Air 12/24/24 04:00 Room Air 12/24/24 01:35 12/24/24 01:22 Room Air Laboratory Results 12/24/24 12/24/24 12/24/24 12:13 04:51 04:10 WBC 5.73 6.37 RBC 3.65 L 3.47 L Hgb 11.1 L 10.5 L Hct 32.8 L 30.8 L MCV 89.9 88.8 MCH 30.4 30.3 MCHC 33.8 34.1 RDW Std Deviation 45.0 45.0 RDW Coeff of Natty 13.8 14.0 Plt Count 572 H 534 H MPV 8.2 L 8.3 L Immature Gran % (Auto) 1.1 Neut % (Auto) 61.8 Lymph % (Auto) 23.9 [place] % (Auto) 11.1 Eos % (Auto) 1.3 Baso % (Auto) 0.8 Neut # (Auto) 3.94 Lymph # (Auto) 1.52 [place] # (Auto) 0.71 H Eos # (Auto) 0.08 Baso # (Auto) 0.05 Immature Gran # (Auto) 0.07 PT 10.3 INR 0.9 APTT 27 PTT Ratio 1.0 Sodium 138 Potassium 4.1 Chloride 103 Carbon Dioxide 26 Anion Gap 9 BUN 10 Creatinine 0.75 Est Cr Clr Drug Dosing 80.7 eGFR 91.09 BUN/Creatinine Ratio 13.3 Glucose 97 Estimat Average Glucose 117 Hemoglobin A1c 5.7 H Calcium 9.2 Total Bilirubin 0.4 AST 20 ALT 24 Alkaline Phosphatase 206 H Total Protein 6.6 Albumin 3.7 Globulin 2.9 Albumin/Globulin Ratio 1.3 Urine Color Urine Appearance Urine pH Ur Specific [place] Urine Protein Urine Glucose (UA) Urine Ketones Urine Blood Urine Nitrite Urine Bilirubin Urine Urobilinogen Ur Leukocyte Esterase Urine Comment Nasal Screen MRSA (PCR) Negative Blood Type Antibody Screen 12/23/24 12/23/24 12/23/24 22:57 16:15 15:05 WBC 6.60 RBC 3.81 L Hgb 11.1 L 11.1 L Hct 32.3 L 34.1 L MCV 89.5 MCH 29.1 MCHC 32.6 RDW Std Deviation 45.5 RDW Coeff of Natty 14.0 Plt Count 579 H MPV 8.2 L Immature Gran % (Auto) 0.8 Neut % (Auto) 63.6 Lymph % (Auto) 23.6 [place] % (Auto) 10.0 Eos % (Auto) 1.4 Baso % (Auto) 0.6 Neut # (Auto) 4.20 Lymph # (Auto) 1.56 [place] # (Auto) 0.66 H Eos # (Auto) 0.09 Baso # (Auto) 0.04 Immature Gran # (Auto) 0.05 PT INR APTT PTT Ratio Sodium 137 Potassium 4.5 Chloride 101 Carbon Dioxide 28 Anion Gap 8 BUN 11 Creatinine 0.75 Est Cr Clr Drug Dosing Not Reportable eGFR 91.09 BUN/Creatinine Ratio 14.7 Glucose 94 Estimat Average Glucose Hemoglobin A1c Calcium 9.4 Total Bilirubin 0.5 AST 32 ALT 31 Alkaline Phosphatase 235 H Total Protein 7.5 Albumin 4.1 Globulin 3.4 Albumin/Globulin Ratio 1.2 Urine Color Yellow Urine Appearance Clear Urine pH 7.0 Ur Specific [place] 1.020 Urine Protein Negative Urine Glucose (UA) Negative Urine Ketones Negative Urine Blood Negative Urine Nitrite Negative Urine Bilirubin Negative Urine Urobilinogen Negative Ur Leukocyte Esterase Negative Urine Comment Nasal Screen MRSA (PCR) Blood Type A Positive Antibody Screen NEGATIVE Diagnostic Findings Head CT 12/23/24 23:54 IMPRESSION: No traumatic brain or bone injury. No evidence of intracranial hemorrhage, gross territorial infarction or mass effect. Redemonstration of age- appropriate volume loss in brain parenchyma showing mild interval progression since last examination. No other interval changes seen. Medications Administered Home Medications Medication Instructions Recorded Confirmed Last Taken peg 3350-sod sulf,[id number]-hon-ttu See Rx Instructions PO .COMPLEX #2 12/19/24 Unknown 178.7-7.3-0.5-1.12-0.9 gram oral mL soln (Suflave) CBD OIL 0 drp PO QAM 12/23/24 12/23/24 12/23/24 acetaminophen 500 mg tablet 1,000 mg PO BID PRN Pain 12/23/24 12/23/24 12/23/24 cefdinir 300 mg capsule 300 mg PO BID 12/23/24 12/23/24 12/23/24 docusate sodium 100 mg capsule 100 mg PO BID 12/23/24 12/23/24 Unknown escitalopram oxalate 20 mg tablet 20 mg PO QAM 12/23/24 12/23/24 12/23/24 hydroxyzine HCl 25 mg tablet 25 mg PO QPM PRN Anxiety 12/23/24 12/23/24 Unknown methocarbamol 500 mg tablet 500 mg PO BID 12/23/24 12/23/24 12/23/24 oxcarbazepine 300 mg tablet 300 mg PO BID 12/23/24 12/23/24 12/23/24 oxycodone 5 mg tablet 5 mg PO Q6H PRN Severe Pain (Scale 12/23/24 12/23/24 Unknown Score 7-10) risperidone 1 mg tablet 0.5 mg PO BID 12/23/24 12/23/24 12/23/24 Active Medications Generic Name Dose Route Start Last Admin Trade Name Jevonq PRN Reason Stop Dose Admin Acetaminophen 650 mg 12/23/24 22:29 12/24/24 10:33 Acetaminophen 325 Mg Tab PO 01/22/25 22:28 650 mg QID PRN Administration pain/fever Docusate Sodium 100 mg 12/24/24 09:00 12/24/24 08:49 Docusate Sodium 100 Mg Cap PO 01/23/25 08:59 100 mg BID BREANNA Administration Escitalopram Oxalate 20 mg 12/24/24 09:00 12/24/24 08:49 Escitalopram Oxalate 20 Mg Tab PO 01/23/25 08:59 20 mg QAM BREANNA Administration Hydromorphone HCl 0.5 mg 12/24/24 03:06 12/24/24 07:46 Hydromorphone Inj 0.5 Mg/0.5 Ml Syr IV 01/07/25 03:05 0.5 mg Q4H PRN Administration Pain Oxcarbazepine 300 mg 12/24/24 09:00 12/24/24 08:50 Oxcarbazepine 150 Mg Tablet PO 01/23/25 08:59 300 mg BID BREANNA Administration Oxycodone HCl 5 mg 12/23/24 22:29 12/24/24 10:33 Oxycodone Hcl Ir 5 Mg Tab (Immediate Release) PO 01/06/25 22:28 5 mg Q4H PRN Administration Pain Risperidone 0.5 mg 12/24/24 09:00 12/24/24 08:49 Risperidone 0.5 Mg Tablet PO 01/23/25 08:59 0.5 mg BID BREANNA Administration
--- NOTE | 2024-12-24 14:59 | CT Scan Report ---
CT cervical spine wo con CT DOSE: 399.33 mGy.cm CLINICAL HISTORY: 59 years-old Female with neck pain, s/p trauma. Acute neck pain status post trauma COMPARISON: Head CT of same day, CT cervical spine and 05/27/2015 TECHNIQUE: Multiple axial CT images of the cervical spine were obtained without contrast. A dose low ering technique was utilized adhering to the principles of ALARA. FINDINGS: Mild multilevel intervertebral disc space narrowing with uncovertebral hypertrophy and post erior disc osteophyte complex formations with moderate to severe facet arthrosis. Degenerative partia l bony fusion of the facets at C2-C3. Sclerotic focus involving the left lateral mass of C1, likely a bone island. No acute cervical spine fracture or subluxation. Multilevel neural foraminal narrowing. The cervical soft tissues appear unremarkable. The visualized lung apices appear clear. IMPRESSION: No acute cervical spine fracture or subluxation. ACT 112: Negative or not required by law. The above report was generated using voice recognition software. It may contain grammatical, syntax o r spelling errors. Electronically signed by: Logan Scherer M.D. 12/24/2024 2:58 PM
[2024-12-24] MEDS: diphenhydrAMINE 50 MG/ML VIAL IV SCH (16:12)
[2024-12-24] MEDS: KETOROLAC TROMETHAMINE 15 MG/ML VIAL IV SCH (16:13)
[2024-12-24] MEDS: PROCHLORPERAZINE 10 MG in SYRINGE 8 ML IV SCH (16:14)
[2024-12-24] MEDS: predniSONE 20 MG TAB PO SCH (16:20)
[2024-12-24] MEDS: MAGNESIUM SULFATE / D5W 1 GM/100 ML BAG IV SCH (16:21)
[2024-12-24] MEDS: SODIUM CHLORIDE 0.9% 1,000 ML IV SCH (16:37)
[2024-12-24] MEDS: VALPROIC ACID SOLN 500 MG/10 ML UDC PO SCH (16:38)
[2024-12-24] MEDS: LORazepam 0.5 MG TAB PO PRN (18:20)
[2024-12-24] MEDS: LIDOCAINE 5% 1 PATCH TD SCH (21:11)
[2024-12-25] MEDS: REMOVE LIDODERM PATCH SCH (10:44)
[2024-12-25 10:47] LABS: Hematocrit (blood only) 32.0 % (37.0-47.0); Hemoglobin 10.2 g/dl (12.0-16.0); Immature Granulocytes # (auto) 0.04 K/uL (0.01-0.20); Immature Granulocytes % (auto) 0.5 %; Mean Corpuscular Hemoglobin 28.7 pg (25.0-34.0); Mean Corpuscular Volume 90.1 fL (80.0-100.0); Platelet Count 565 K/uL (130-400); RDW Standard Deviation 45.8 fL (36.4-46.3); Red Blood Count 3.55 M/uL (4.20-5.40); White Blood Count 7.99 K/ul (4.8-10.8)
[2024-12-25 11:03] LABS: Alanine Aminotransferase 20.0 U/L (7-52); Albumin Globulin Ratio 1.3 (0.9-2); Alkaline Phosphatase 192.0 U/L (34-104); Anion Gap 6.0 (3-11); Bilirubin,Total 0.3 mg/dl (0.2-1.0); Blood Urea Nitrogen 12.0 mg/dl (6-23); Calcium 8.7 mg/dl (8.6-10.3); Carbon Dioxide 25.0 mmol/L (21-32); Chloride 107.0 mmol/L (98-107); Creatinine Clr Calc Pharmacy 73.6 ml/min; Globulin 2.7 gm/dl (2.5-4.0); Glucose 142.0 mg/dl (70-99(Fasting)); Potassium 3.8 mmol/L (3.5-5.1); Sodium 138.0 mmol/L (136-145); Total Protein 6.3 gm/dl (6.0-8.3)
--- NOTE | 2024-12-25 14:02 | Hospitalist Progress Note ---
Date of Service December 25, 2024 Assessment & Plan (1) Asymptomatic hypertensive urgency: Plan: Assessment and plan below following discussion of case with ED provider and reviewing patient history/pertinent normal/abnormal diagnostic test results. Traumatic left hemothorax/rib fracture Splenic laceration status post surgery, abdominal pain not as worse as per patient Traumatic sacral fracture with radiculopathy symptoms - on room air hemoglobin 11.1--> 10.5--> 11.1---> 10.2 pulmonology service consulted: no thoracentesis for now, continue supportive care, repeat chest x-ray in 5 to 7 days - orthopedic service consulted: Recommend close management of both L4 spinous process and sacral fractures, LSO brace, weightbearing as tolerated, follow-up in 4 weeks for repeat x-rays Left-sided headache, neck pain - CT head unremarkable CT cervical spine: No acute cervical spine fracture or subluxation. - neurology service consulted, possible postconcussive injury recommend migraine cocktail with: diphenhydramine 12.5 mg IV every 6 hours, ketorolac 15 mg IV every 6 hours, IV fluids rate 100 mL/hour, magnesium sulfate 2 mg IV daily, pantoprazole 40 mg daily, prednisone 20 mg daily, Compazine 10 mg IV every 6 hours, valproic acid 500 mg IV daily ( Patient did not tolerate prednisone due to agitation, discontinued) start headache preventative medication with metoprolol 50 mg daily for 1 week then increase to 100 mg daily - headache improving Hypertensive urgency secondary to pain from recent injury - resolved Anemia secondary to recent trauma/surgery anxiety/mood disorder, at baseline Prediabetes-A1c 5.7, outpatient follow-up ongoing tobacco abuse DVT prophylaxis. SCDs re: hemothorax Full code Disposition anticipate d/c home in 1-2 days PT/OT evaluation plan of care discussed with patient in detail and at length all questions answered she is understanding, agreeable, comfortable with the plan of care Admission and Anticipated Discharge Date Admission Date: December 24, 2024 Subjective seen resting in bed, comfortable, not in distress States she feels improved compared to yesterday Left-sided headache is now 3-4 out of 10 compared to 7 out of 10 yesterday No dizziness, nausea, blurring of vision, focal neurologic deficits Left sided chest discomfort improving, no shortness of breath, hematochezia Low back pain also improving No other new symptoms Review of Systems Review of Systems: all noted and negative except for above Physical Exam Physical Exam: General- oriented x 3, not in distress, speaks in sentences with no effort or accessory muscle use Eyes- anicteric Neck- no JVD Lungs- clear breath sounds bilaterally, no rales/wheezes Heart- normal rate, regular rhythm; no murmurs Abdomen- normal bowel sounds, nondistended, soft, nontender Extremities- no pretibial edema, no calf tenderness Neuro- alert, oriented x 3; no gross focal neurologic deficits Skin- warm & dry Results & Data Results & Data Vital Signs (Past 12 Hours) Vital Signs Temp Pulse Pulse Resp BP Pulse Ox O2 Del Method 12/25/24 12:01 36.7 C 83 16 131/75 95 Room Air 12/25/24 08:37 36.7 C 98 H 20 151/90 H 96 Room Air 12/25/24 07:44 87 12/25/24 02:51 36.4 C L 79 18 138/73 95 Room Air all noted and reviewed including below
--- NOTE | 2024-12-25 14:05 | Pulmonology Progress Note ---
Date of Service December 25, 2024 Assessment & Plan (1) Pleural effusion, left: Plan: Her hemoglobin has remained stable. Doubtful that the pleural effusion represents hemothorax as prior discussion on prior note. This was reviewed and discussed with the patient. Recommend a follow-up chest x-ray in 5 to 7 days as an outpatient. No additional pulmonary evaluations or intervention is required at this time. (2) Closed fracture of rib of left side: Plan: Continue pain control per primary team. Incentive spirometer and flutter valve ordered. (3) Spleen laceration: Plan: This was embolized at an outside facility about 2 weeks ago. (4) Anemia: Plan: Hemoglobin stabilized. Plan I personally spent 20 minutes on the date of service in activities related to this patient's encounter, including 15 minutes of counseling with patient regarding treatment plan and 35 minutes of clinical review of lab results and documentation. I did addiction treatment counselor the patient regarding their diagnosis and treatment plan and they expressed understanding. This note was dictated using voice recognition software and may include grammatical errors, extra words, word substitutions and other inaccuracies due to errors in the voice recognition software and differences in speech patterns. Admission and Anticipated Discharge Date Admission Date: December 24, 2024 Subjective Patient seen and examined. She is not requiring supplemental oxygen. She notes that her chest discomfort is improving. She still has trouble taking a complete deep breath. She has been using her flutter valve. She was not provided with an incentive spirometer. Review of Systems Review of Systems: All systems reviewed & are unremarkable except as noted in HPI & below Physical Exam Physical Exam: Constitutional: Patient appears to be of their stated age. Patient is in no apparent distress. Patient is well-developed. Eyes: Pupils are equal round and reactive to light. Conjunctivae are normal. Anicteric sclera. Ears nose, mouth and throat: Mallampati class 2. Normal posterior oropharynx. Uvula is midline. Neck: Trachea is midline. Visual inspection is normal. Respiratory: Diminished on the left with mild crackles. Cardiovascular: Regular rate and rhythm. No murmurs. No edema. Gastrointestinal: Normal bowel sounds, soft, nontender and nondistended. No hepatosplenomegaly noted. Musculoskeletal: No cyanosis. Patient is able to move all extremities. Strength is 5 out of 5 in the upper and lower extremities. Skin: No rashes, warm dry and intact. Neurologic: No obvious focal neurological deficits seen. Psychiatric: Alert and oriented x3 with a euthymic affect. Results & Data Results & Data Vital Signs (Past 12 Hours) Vital Signs Temp Pulse Pulse Resp BP Pulse Ox O2 Del Method 12/25/24 12:01 36.7 C 83 16 131/75 95 Room Air 12/25/24 08:37 36.7 C 98 H 20 151/90 H 96 Room Air 12/25/24 07:44 87 12/25/24 02:51 36.4 C L 79 18 138/73 95 Room Air PG Care Time/CCT Total # of Minutes Spent Total Time Spent with Patient: Total time spent is greater than 50% in coordination of care (as documented) at patient's floor/unit and/or counseling patient: Coding Level of Care Code 85606 SUB INP/OBS CARE 235MIN Diagnoses Pleural effusion, left J90 Closed fracture of rib of left side S22.32XA Spleen laceration S36.039A Anemia D64.9
[2024-12-25] MEDS: METOPROLOL TARTRATE 25 MG TAB PO SCH (20:34)
[2024-12-26 06:21] LABS: Hematocrit (blood only) 31.3 % (37.0-47.0); Hemoglobin 10.1 g/dl (12.0-16.0); Immature Granulocytes # (auto) 0.03 K/uL (0.01-0.20); Immature Granulocytes % (auto) 0.4 %; Mean Corpuscular Hemoglobin 29.0 pg (25.0-34.0); Mean Corpuscular Volume 89.9 fL (80.0-100.0); Platelet Count 557 K/uL (130-400); RDW Standard Deviation 45.9 fL (36.4-46.3); Red Blood Count 3.48 M/uL (4.20-5.40); White Blood Count 7.58 K/ul (4.8-10.8)
[2024-12-26 06:46] LABS: Anion Gap 5.0 (3-11); Blood Urea Nitrogen 13.0 mg/dl (6-23); Calcium 8.3 mg/dl (8.6-10.3); Carbon Dioxide 26.0 mmol/L (21-32); Chloride 108.0 mmol/L (98-107); Creatinine Clr Calc Pharmacy 79.9 ml/min; Glucose 92.0 mg/dl (70-99(Fasting)); Potassium 4.3 mmol/L (3.5-5.1); Sodium 139.0 mmol/L (136-145)
--- NOTE | 2024-12-26 17:08 | Discharge Summary ---
Discharge Summary Date of Service December 26, 2024 Principal Dx & Hospital Course #1 = Principal Diagnosis (1) Asymptomatic hypertensive urgency: Assessment and plan below following discussion of case with ED provider and reviewing patient history/pertinent normal/abnormal diagnostic test results. Traumatic left hemothorax/rib fracture Splenic laceration status post surgery, abdominal pain not as worse as per patient Traumatic sacral fracture with radiculopathy symptoms - on room air hemoglobin 11.1--> 10.5--> 11.1---> 10.2 pulmonology service consulted: no thoracentesis for now, continue supportive care, repeat chest x-ray in 5 to 7 days - orthopedic service consulted: Recommend close management of both L4 spinous process and sacral fractures, LSO brace, weightbearing as tolerated, follow-up in 4 weeks for repeat x-rays Left-sided headache, neck pain - CT head unremarkable CT cervical spine: No acute cervical spine fracture or subluxation. - neurology service consulted, possible postconcussive injury recommend migraine cocktail with: diphenhydramine 12.5 mg IV every 6 hours, ketorolac 15 mg IV every 6 hours, IV fluids rate 100 mL/hour, magnesium sulfate 2 mg IV daily, pantoprazole 40 mg daily, prednisone 20 mg daily, Compazine 10 mg IV every 6 hours, valproic acid 500 mg IV daily ( Patient did not tolerate prednisone due to agitation, discontinued) start headache preventative medication with metoprolol 50 mg daily for 1 week then increase to 100 mg daily - headache improving Hypertensive urgency secondary to pain from recent injury - resolved Anemia secondary to recent trauma/surgery anxiety/mood disorder, at baseline Prediabetes-A1c 5.7, outpatient follow-up ongoing tobacco abuse DVT prophylaxis. SCDs re: hemothorax Full code Disposition anticipate d/c home in 1-2 days PT/OT evaluation plan of care discussed with patient in detail and at length all questions answered she is understanding, agreeable, comfortable with the plan of care Notes For Next Care Provider 59 yo female with pmhx history of traumatic rib fracture, splenic laceration status post recent surgery, hyperlipidemia, anxiety/mood disorder, ongoing tobacco abuse who presents for feeling uncomfortable s/p horse fall. Admitted to medicine for symptom control. Noted to have hemothorax, trace pneumoperitoneum, splenic laceration, lumbar/sacral fractures, headache. Neurology consulted for headache, recommended migraine cocktail and prophylactic medications. Ortho consulted, recommended conservative management of lumbar/sacral fracture. Pulmonary consulted, recommended xray in one week. PT/OT recommending discharge home. On 12/26/2024 patient medically stable for discharge home. To do: [ ] f/u with PCP, neurology, ortho, pulmonology [ ] xray in one week Medication Changes From Visit -migraine cocktail medications, pain medications Admission HPI Per Admitting Provider History obtained from patient and records. Medical history significant for history of traumatic rib fracture, splenic laceration status post recent surgery, hyperlipidemia, anxiety/mood disorder, ongoing tobacco abuse Patient was in [place] 2 weeks ago to visit a friend when she she fell down while posing for a picture with a horse. Patient fell on her left side resulting in some head trauma without LOC. Achy left-sided chest, abdominal pain, and back pain. Patient subsequently confined at [facility] in [place], [place]. Found to have a rib fracture along with splenic laceration. Patient underwent spleen embolization surgery. Patient uncomfortable upon discharge from hospital last week. It took her more than [address] back home to [place] from [place]. Worsening pleuritic left-sided chest pain with SOB. Left side seems bloated as per patient. No cough symptoms. Worsening headache symptoms. Worsening low back pain with some radiation to the legs. Intermittent incontinence episodes. No fever, no chills. Abdominal pain not as worse as per patient. Patient consulted ER for worsening symptoms. Highest SBP of 170s documented at the ER. Medical History as above Surgical History : Tonsillectomy, shoulder surgery, toe surgery Family History : Heart disease, DM Personal/Social history : 1/4 pack daily, no EtOH intake, disabled Discharge Exam Gen: A&O 3 NAD HEENT: NCAT, EOMI, not icteric. External ears normal. No rhinorrhea. Moist mucous membranes. Neck: Supple, full range of motion, no observable masses, No meningeal sign. Lungs: No Respiratory distress. CV: RRR, no edema. Abdomen: Soft, nondistended, No rebound tenderness. MSK: No joint swelling, no redness. Skin: No rashes, petechiae, lesions. Normal color per patient. Neuro: Normal Gait, Grossly intact. Psych: Appropriate for situation. Updated Medication List Medication Instructions Recorded Confirmed Type peg 3350-sod [id number] See Rx Instructions PO .COMPLEX #2 12/19/24 Rx 178.7-7.3-0.5-1.12-0.9 gram oral mL soln (Suflave) CBD OIL 0 drp PO QAM 12/23/24 12/23/24 History acetaminophen 500 mg tablet 1,000 mg PO BID PRN Pain 12/23/24 12/23/24 History docusate sodium 100 mg capsule 100 mg PO BID 12/23/24 12/23/24 History escitalopram oxalate 20 mg tablet 20 mg PO QAM 12/23/24 12/23/24 History hydroxyzine HCl 25 mg tablet 25 mg PO QPM PRN Anxiety 12/23/24 12/23/24 History oxcarbazepine 300 mg tablet 300 mg PO BID 12/23/24 12/23/24 History risperidone 1 mg tablet 0.5 mg PO BID 12/23/24 12/23/24 History acetaminophen 500 mg capsule 1,000 mg (2 x 500 mg) PO Q6H PRN 12/26/24 Rx fever or pain #60 caps ketorolac 10 mg tablet 10 mg PO Q8H PRN pain 14 days #30 12/26/24 Rx tabs lidocaine 5 % topical patch 1 patch transdermal HS #30 ea 12/26/24 Rx metoprolol tartrate 25 mg tablet 25 mg PO BID 30 days #60 tabs 12/26/24 Rx oxycodone 5 mg tablet 5 mg PO Q4 PRN pain 14 days #30 12/26/24 Rx tabs pantoprazole 40 mg tablet,delayed 40 mg PO QAM #30 tabs 12/26/24 Rx release prochlorperazine maleate 10 mg 10 mg PO Q8H PRN nausea and 12/26/24 Rx tablet (Compazine) vomiting 14 days #60 tabs valproic acid (as sodium salt) 500 500 mg (10 mL) PO DAILY #1,000 mL 12/26/24 Rx mg/10 mL (10 mL) oral solution Hospital Stay Data Consultations 12/23/24 22:13 ED Decision to Admit Stat 12/24/24 03:12 Consult Pulmonology Routine 12/24/24 08:33 Consult Neurology Routine 12/24/24 08:34 Consult Orthopedic Surgery Routine Diagnostic Imagining Performed 12/23/24 17:43 CT angio chest PE protocol Stat CT lumbar spine w con Stat CT thoracic spine w con Stat 12/23/24 17:44 CT abd pelvis IV con only Stat 12/23/24 23:54 CT head/brain wo con Stat 12/24/24 00:08 MRI Lumbar Spine [MR lumbar spine wo con] Routine 12/24/24 08:33 CT cervical spine wo con Routine Pending Results Patient Have Any Pending Studies at Discharge: No Discharge Instructions Given to Patient (Per Discharging Provider) Diagnoses: hemothorax, neck pain/headache, hypertension, lumbar/sacral fractures, pelvic pneumoperitoneum, splenic laceration, left rib fracture Follow Ups: PCP, ortho, pulmonology, neurology Incidental findings: left gluteus fluid collection (small), left ovarian cyst 1. Please follow up with PCP, ortho, pulmonolgy, neurology. 2. Stay hydrated! 3. Take medications as prescribed. Total Time Total Time Spent Total Time Spent (In Minutes): I spent a total of 35 minutes in direct patient care, including [id number] time with the patient and/or family, reviewing medical records, ordering and reviewing diagnostic tests, and coordinating care with other healthcare providers. This time includes: history taking, physical examination, medical decision making, counseling, ECG interpretation, imaging interpretation, lab interpretation, orders, and education, excluding time spent in the performance of separately billed services.
== END 2024-12-26 18:04 | disposition home health service (06) | DRG 305 ==
LOC: ED 14:43 → EDINP 12-24 03:05 → SUATTDRO 12-24 03:05 → 2W 12-24 03:12